=== PATIENT | female | born 1940 | race Caucasian/White ===

== ENCOUNTER 2025-04-24 12:38 | Outpatient (AMB) | payer MEDICARE, OTHER, SELFPAY ==
--- NOTE | 2025-04-24 12:41 | A.OFFVIS_ITS ---
Vital Signs 04/24/25 12:42 Height 5 ft 5 in Intake Visit Reasons: 1 year follow up Allergies No Known Allergies Allergy (Verified 04/24/25 12:42) Medication List - Last Reconciled 04/24/[address] CNP allopurinol 100 mg PO DAILY anastrozole 1 mg PO DAILY apixaban (Eliquis) 2.5 mg PO BID aspirin 81 mg PO DAILY atorvastatin (Lipitor) 40 mg PO QPM meprobamate 400 mg PO BID 90 days metoprolol succinate ER 25 mg PO DAILY sotalol 80 mg PO DAILY HPI Comments Details: 84-year-old woman with breast cancer, lumbar spinal stenosis, CHF, s/p angiogram but no CAD, afib, anxiety disorder and chronic stress related to her son's disability, and tremor treated with meprobamate for number of years. She was admitted to [facility] [place] [place] in 01/2025 for afib and had cardioversion. Tremor was not bad. No functional impairment. No difficulty eating, drinking, or swallowing. She was using walker or cane for longer distances, no falls. Sleep was okay. [facility] Family History (Updated 04/24/25 @ 12:[address] CNP) Father Tremor Review of Systems Const Denies chills, Denies daytime sleepiness, Denies difficulty sleeping, Denies fatigue, Denies fever(s), Denies frequent falls, Denies headache(s), Denies increased appetite, Denies poor appetite, Denies snoring, Denies weakness, Denies weight gain and Denies weight loss Eyes Denies loss of vision ENT Denies vertigo, Denies dizziness and Denies headache(s) Card Denies chest pain at rest, Denies chest pain with activity, Denies syncope, Denies leg edema and Denies palpitations Resp Denies snoring GI Denies constipation, Denies heartburn, Denies diarrhea and Denies nausea Denies urinary frequency, Denies urinary incontinence and Denies urinary urgency Musc Reports abnormal gait (balance difficulty), Denies numbness and Denies tingling Skin/Breast Denies dry skin and Denies rash Neuro Reports abnormal gait (balance difficulty), Denies vertigo, Denies dizziness, Denies syncope, Denies frequent falls, Denies headache(s), Denies lack of coordination, Denies loss of vision, Denies memory loss, Denies numbness, Denies restless legs, Denies seizure-like activity, Denies tingling, Denies paresthesias, Reports tremor(s) and Denies weakness Psych Denies anxiety, Denies depression, Denies auditory hallucinations, Denies memory loss, Denies visual hallucinations and Denies suicidal ideation Endo Denies fatigue and Denies palpitations Physical Exam Const Other: General Appearance:? normal, in no acute distress. Skin:? no rashes, no significant birthmarks. Heart:? S1, S2 normal, no murmurs. Lungs:? clear anteriorly and posteriorly. Extremities:? no edema. Psych:? alert, oriented, cognitive function intact, cooperative with exam. Neuro Other: Mental Status:?Normal attention, orientation, memory and affect.? Cranial Nerves:?Pupils are equal, round and reactive to light. External occular muscles are intact. Visual grande are full. Face is symmetrical. Facial sensations are normal. Tongue is midline. Palate elevates symmetrically. Shoulder shrugging is normal. Hearing to bedside conversation is decreased. Coordination:?No ataxia,?no titubation.? Gait Exam: Slow and cautious with cane Extrapyramidal System:?No tremor, rigidity with normal facial expressions.? Pronator Drift:?Not present.? Involuntary Movements:?Mild bilateral hand postural tremor. Speech:?Normal.? Assessment & Plan Assessment & Plan (1) Benign essential tremor: Code(s): G25.0 - Essential tremor Category: Medical Plan: Continue meprobamate 400mg 1 tablet twice a day (2) Anxiety disorder: Code(s): F41.9 - Anxiety disorder, unspecified Category: Medical Qualifiers: Anxiety disorder type: unspecified anxiety disorder Qualified Code(s): F41.9 - Anxiety disorder, unspecified Plan . Coding Level of Care Code Est Pt Level 3 (62085) Diagnoses Benign essential tremor G25.0 Anxiety disorder, unspecified type F41.9 Anxiety disorder type: unspecified anxiety disorder
--- OUTSIDE RECORDS SUMMARY | 2025-04-24 13:02 | XMS_ITS | Clinical Summary ---
Author Organization [facility] Address [address] [place] [address] Care Team Providers Care Environmental Sampler Name Role Phone Teresita Hauser NP Primary Care Provider [phone] Allergies Active Allergy Reactions Criticality Noted Date Comments Codeine 02/05/2022 Medications Medication Sig Dispensed Refills Start Date End Date Status metoprolol succinate (TOPROL-XL) 24 hr tablet 100 mg Take by mouth daily. 0 Active apixaban (ELIQUIS) 5 MG TABS tablet Take by mouth every 12 (twelve) hours. 0 Active lisinopril (PRINIVIL,ZESTRIL) tablet 5 mg Take 1 tablet (5 mg total) by mouth daily. 0 Active aspirin EC 81 MG tablet Take 1 tablet (81 mg total) by mouth daily. 0 Active furosemide (LASIX) 20 MG tablet Take 1 tablet (20 mg total) by mouth daily. 0 Active atorvastatin (LIPITOR) tablet 40 mg Take 1 tablet (40 mg total) by mouth daily. 0 Active meprobamate (EQUANIL) 400 MG tablet Take 1 tablet (400 mg total) by mouth 2 (two) times a day. 0 Active thiamine mononitrate (VITAMIN B-1) 100 MG tablet Take 1 tablet (100 mg total) by mouth daily. 0 Active anastrozole (ARIMIDEX) 1 MG tablet Take 1 tablet (1 mg total) by mouth daily 90 tablet 3 12/06/2023 Active vitamin D3 (cholecalciferol) 25 MCG (1000 UT) tablet Take 1 tablet (25 mcg total) by mouth daily. 0 Active alendronate (FOSAMAX) tablet 70 mg Take 1 tablet (70 mg total) by mouth every 7 days. Take with water on empty stomach/Nothing by mouth and do not lie down for next 30 minutes 0 Active Active Problems Problem Noted Date Diagnosed Date Iron deficiency anemia secondary to blood loss ( chronic) 02/05/2022 Mass of upper inner quadrant of left breast 03/2022 Claudication 05/18/2021 Alcohol dependence in remission 06/20/2020 Chronic congestive heart failure 06/20/2020 Atrial fibrillation 04/18/2020 Benign essential tremor 01/15/2020 Dyslipidemia 05/22/2012 Anxiety state 11/10/2005 Family History Medical History Relation Name Comments Colon cancer Mother Relation Name Status Comments Father Mother Social History Tobacco Use Types Packs/Day Years Used Date Smoking Tobacco: Never Smokeless Tobacco: Never Alcohol Use Standard Drinks/Week Comments Not Currently 0 (1 standard drink = 0.6 oz pur e alcohol) Quit 2019 Sex and Gender Information Value Date Recorded Sex Assigned at Not on file Gender Identity Not on file Sexual Orientation Not on file Job Start Date Occupation Industry Not on file Not on file Not on file Last Filed Vital Signs Vital Sign Reading Time Taken Comments Blood Pressure 143/76 06/07/2024 11:06 AM EDT Pulse 93 06/07/2024 11:06 AM EDT Temperature 35.8 C (96.4 F) 06/07/2024 11:06 AM EDT Respiratory Rate - - Oxygen Saturation 100% 06/07/2024 11:06 AM EDT Inhaled Oxygen Concentration - - Weight 60.4 kg (133 lb 3.2 oz) 06/07/2024 11:06 AM EDT Height 165.1 cm (5' 5 ) 12/06/2023 11:00 AM EST Body Mass Index 22.17 12/06/2023 11:00 AM EST Plan of Treatment Health Maintenance Due Date Last Done Comments Depression Screening 1953 Preventative Health Evaluation 1959 Shingrix-Zoster Vaccine (1 of 2) 1960 Fall Risk Assessment 2006 Osteoporosis Screening (DEXA Scan) 2006 RSV Adult > 60+ Yrs or (1 - 1-dose 75+ series) 2016 COVID-19 Vaccine (3 - Pfizer risk series) 02/06/2021 01/09/2021, 12/18/2020 Influenza Vaccine (#1) 2025 , 07/17/2018, 08/01/2014, Additional history exists DTap / Tdap / Td (2 - Td or Tdap) 01/31/2029 01/31/2019 Pneumococcal Vaccine Completed 07/17/2018, 05/05/20 10 Hepatitis B Vaccines Aged Out No long er eligible based on patient's age to complete this topic RSV Ped < 20 months Aged Out No longe r eligible based on patient's age to complete this topic Care Teams Environmental Sampler Relationship Specialty Start Date End Date Teresita Hauser NP [address] [facility] [place] [id number] PCP - General Family Medicine 06/03/23
--- OUTSIDE RECORDS SUMMARY | 2025-04-24 13:02 | XMS_ITS | Clinical Summary ---
Author Organization [facility] Address [address] [place] [address] Phone Care Team Providers Care Case Loader Operator Name Role Phone Evelina Berry APRN Primary Care Provider Unav ailable Allergies Active Allergy Reactions Criticality Noted Date Comments Codeine Other (see comments) 12/30/2020 Medications apixaban (ELIQUIS) 5 MG tablet Take 1 tablet by mouth 2 (two) times a day Active aspirin 81 MG chewable tablet Chew 1 tablet 1 (one) time each day Active folic acid (FOLVITE) 1 MG tablet Take 1 tablet by mouth 1 (one) time each day Active furosemide (LASIX) 20 MG tablet Take 20 mg by mouth 1 (one) time each day Active meprobamate (EQUANIL) 400 MG tablet Take 1 tablet by mouth twice a day Active metoprolol succinate XL (TOPROL-XL) 100 MG 24 hr tablet Take 1 tablet by mouth 1 (one) time each day Active atorvastatin (LIPITOR) 40 MG tablet Take 40 mg by mouth 1 (one) time each day 07/03/2021 Active Thiamine Mononitrate (B1) 100 MG tablet Take 1 tablet by mouth 1 (one) time each day 07/13/2021 Active anastrozole (ARIMIDEX) 1 MG chemo tablet Take 1 mg by mouth 1 (one) time each day 05/07/2022 Active Active Problems Problem Noted Date Diagnosed Date 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 03/03/2022 Chronic iron deficiency anemia secondary to bloo d loss 02/05/2022 Lump in the left breast, upper inner quadrant History of partial resection of colon 11/23/2021 Atrial fibrillation 10/14/2021 Chest pain 10/14/2021 Heart failure 10/14/2021 Syncope 10/14/2021 Diverticulosis of sigmoid colon 06/11/2021 Overview (05/19/2022): Seen on colonoscopy on 05/27/21 Internal hemorrhoids 06/11/2021 Overview (05/19/2022): Seen on colonoscopy on 05/27/21 Intermittent claudication 05/18/2021 Severe acute respiratory syn drome coronavirus 2 not detected 03/13/2021 Wide QRS ventricular tachycardia 02/19/2021 Hypertensive disorder 12/30/2020 Hyposmolality and/or hyponatremia 12/30/2020 Alcohol dependence in remission 06/20/2020 Chronic congestive heart failure 06/20/2020 Hyponatremia 04/18/2020 Essential tremor 01/15/2020 Not for resuscitation 04/04/2019 Edema of left lower limb 03/28/2019 Spinal stenosis of lumbar region 08/01/2014 Dyslipidemia 05/22/2012 Gastroesophageal reflux disease 05/05/2010 Polyp of colon 05/05/2010 Anxiety state 11/10/2005 Paralysis agitans 11/10/2005 Overview (05/19/2022): Followed by Dr. Du. Continue Meprobamate Insomnia 11/10/2005 Senile osteoporosis 11/10/2005 Screening examination for pulmonary tuberculosis 11/10/2005 Immunizations Immunization Administration Dates Next Due Tdap 01/31/2019 Social History Tobacco Use Types Packs/Day Years Used Date Smoking Tobacco: Never Smokeless Tobacco: Never Tobacco Cessation:Counseling Given: Not Answered Alcohol Use Standard Drinks/Week Comments Yes 0 (1 standard drink = 0.6 oz pure alcohol) Alcoholic Drinks/day: Occasional social drink Comments Unknown Sex and Gender Information Value Date Recorded Sex Assigned at Not on file Legal Sex Female 5:13 PM EST Gender Identity Not on file Sexual Orientation Not on file Last Filed Vital Signs Vital Sign Reading Time Taken Comments Blood Pressure 102/56 05/19/2022 2:51 PM EDT Pulse 63 05/19/2022 2:51 PM EDT Temperature - - Respiratory Rate - - Oxygen Saturation 99% 05/19/2022 2:51 PM EDT Inhaled Oxygen Concentration - - Weight 61 kg (134 lb 6.4 oz) 05/19/2022 2:51 PM EDT Height - - Body Mass Index - - Plan of Treatment Health Maintenance Due Date Last Done Comments Influenza Vaccine (#1) 2025 2, 07/17/2018 Pneumococcal Vaccine: 50+ Years Completed 07/17/2018, 05/05/2010 Pneumococcal Vaccine: Peds (0 to 5 Years) and At-Risk Patients (6 to 49 Years) Discontinued 07/17/2018, 05/05/2010 Hepatitis B Vaccine Aged Out No longe r eligible based on patient's age to complete this [place] [address] [place] [address] Commercial Medicare Aet Commercial Medicare Care Teams Case Loader Operator Relationship Specialty Start Date End Date Evelina Berry APRN PCP - General Internal Medicine 07/22/21
--- OUTSIDE RECORDS SUMMARY | 2025-04-24 13:02 | XMS_ITS ---
Author Organization [facility] Address [address] [place] [address] Phone Care Team Providers Care Contract Clerk Name Role Phone Teresita Hauser NP Primary Care Provider [phone] Community Health Worker Program Status:Identified (Enrolling) Start date:03/18/2025 Enrollment reason:Referred by Care Team Overview Community Health Worker Program Case Team Name Relationship Phone Mala Yancey Community Health Worker(Responsi ble Staff) Continued Care and Services Coordination
== END 2025-04-24 13:09 | disposition home or self-care (01) ==
LOC: HO.HSM 12:39
PROVIDERS: PCP Nurse Practitioner Primary Care; Visit Provider Registered Nurse
DX: G25.0 Essential tremor (principal); F41.9 Anxiety disorder, unspecified
CPT/HCPCS: 99213

== ENCOUNTER → 2025-04-24 12:38 | Outpatient (BNVA) | payer MEDICARE, OTHER, SELFPAY | PROVIDERS: PCP Nurse Practitioner Primary Care; Visit Provider Registered Nurse | DX: G25.0 Essential tremor (principal); F41.9 Anxiety disorder, unspecified | CPT/HCPCS: 99212 ==